=== PATIENT | male | born 1960 | race Caucasian/White ===

== ENCOUNTER 2017-12-29 02:57 | Inpatient (IN) | payer OTHER ==
[2017-12-29] MEDS: HYDROCODONE/APAP (5/325) TAB PO (03:58)
[2017-12-29] MEDS: DEXAMETHASONE 10 MG/ML 1 ML INJ IV (04:59)
[2017-12-29] MEDS: hydrALAzine 20 MG INJ IV (04:59)
[2017-12-29] MEDS: LEVETIRACETAM 1000 MG (PMX) 100 ML IVPB (05:01)
[2017-12-29 05:05] LABS: ADD MAN DIFF? NO
[2017-12-29 05:07] LABS: WHITE BLOOD COUNT 11.8 10^3/ul (4.8-10.8)
[2017-12-29 05:07] LABS: BASOPHIL # 0.1 10^3/ul (0.0-0.1); BASOPHILS % 0.7 % (0.0-2.0); EOSINOPHILS # 0.2 10^3/ul (0.0-0.5); EOSINOPHILS % 1.4 % (0.0-7.0); HEMATOCRIT 41.5 % (42.0-52.0); HEMOGLOBIN 13.7 g/dl (14.0-18.0); LYMPHOCYTES # 1.5 10^3/ul (0.8-2.9); LYMPHOCYTES % 12.4 % (15.0-51.0); MEAN CORPUSCULAR HEMOGLOBIN 29.4 pg (29.0-33.0); MEAN CORPUSCULAR VOLUME 89.1 fl (82.0-101.0); MEAN PLATELET VOLUME 9.9 fl (7.4-10.4); MONOCYTE # 0.9 10^3/ul (0.3-0.9); MONOCYTES % 7.6 % (0.0-11.0); NEUTROPHIL # 9.2 10^3/ul (1.6-7.5); NEUTROPHILS % 77.6 % (39.0-77.0); PLATELET COUNT 448 10^3/UL (140-415); RED BLOOD COUNT 4.66 10^6/ul (4.70-6.10); RED CELL DISTRIBUTION WIDTH 12.6 % (11.5-14.5)
[2017-12-29] MEDS ORDERED: ONDANSETRON 4 MG INJ (05:07)
[2017-12-29] MEDS: ONDANSETRON 4 MG INJ IV (05:08)
[2017-12-29] MEDS: morphine 4 MG/ML VIAL IV (05:22)
[2017-12-29 05:26] LABS: INR 0.97
[2017-12-29 05:27] LABS: PARTIAL THROMBOPLASTIN TIME 25.9 Sec (23.0-35.0)
[2017-12-29] MEDS ORDERED: niCARdipine 25 MG in SOD CHLORIDE 0.9% 240 ML IV (05:30)
[2017-12-29] MEDS: FENTAnyl 50 MCG/ML VIAL IV (05:30)
[2017-12-29] MEDS ORDERED: ACETAMINOPHEN 650 MG SUPP PR (05:30)
[2017-12-29] MEDS ORDERED: niCARdipine 25 MG in SOD CHLORIDE 0.9% 250 ML IV (05:30)
[2017-12-29 05:31] LABS: SALICYLATE 1.1 mg/dl (5.0-30.0)
[2017-12-29 05:32] LABS: ACETAMINOPHEN < 10.0 ug/ml (10.0-30.0)
[2017-12-29 05:32] LABS: ETHANOL < 10.0 mg/dl
[2017-12-29 05:37] LABS: ALANINE AMINOTRANSFERASE 20 IU/L (13-69); ALBUMIN 2.9 g/dl (3.3-4.9); ALBUMIN/GLOBULIN RATIO 1.03; ALKALINE PHOSPHATASE 66 IU/L (42-121); ANION GAP 11 (8-16); ASPARTATE AMINO TRANSFERASE 18 IU/L (15-46); BILIRUBIN,INDIRECT 0.2 mg/dl (0-1.1); BILIRUBIN,TOTAL 0.2 mg/dl (0.2-1.3); BLOOD UREA NITROGEN 11 mg/dl (7-20); CALCIUM 9.3 mg/dl (8.4-10.2); CARBON DIOXIDE 27 mmol/L (21-31); CHLORIDE 105 mmol/L (97-110); CREATININE 0.66 mg/dl (0.61-1.24); GLUCOSE 115 mg/dl (70-220); POTASSIUM 4.2 mmol/L (3.5-5.1); SODIUM 139 mmol/L (135-144); TOTAL PROTEIN 5.7 g/dl (6.1-8.1)
[2017-12-29] MEDS: niCARdipine 25 MG in SOD CHLORIDE 0.9% 240 ML IV (05:41)
[2017-12-29 05:49] LABS: B-TYPE NATRIURETIC PEPTIDE 86 PG/ML (0-125); TROPONIN-I < 0.012 ng/ml (0.000-0.120)
[2017-12-29] MEDS: PANTOPRAZOLE 40 MG INJ IV (06:18)
[2017-12-29 07:53] LABS: MAGNESIUM 1.9 mg/dl (1.7-2.5)
[2017-12-29 07:53] LABS: CHOL/HDL RATIO 3.3 RATIO; CHOLESTEROL 155 mg/dl (100-200); HDL CHOLESTEROL 46 mg/dl (28-71); LDL CHOLESTEROL,CALCULATED 88 mg/dl; TRIGLYCERIDES 104 mg/dl (0-149)
[2017-12-29 08:19] LABS: HEMOGLOBIN A1C 5.1 % (0-5.9)
[2017-12-29] MEDS ORDERED: MIDAZOLAM 1 MG/ML 2 ML INJ IV (08:30)
[2017-12-29] MEDS: THIAMINE 200 MG INJ IM (10:41)
[2017-12-29 14:36] LABS: CREATINE KINASE 84 IU/L (23-200)
[2017-12-29 14:46] LABS: AMPHETAMINE/METHAMPHETAMINE Negative (NEGATIVE); BARBITURATES Negative (NEGATIVE); CANNABINOIDS Negative (NEGATIVE); COCAINE Negative (NEGATIVE)
[2017-12-29 14:50] LABS: CK INDEX 3.3; CK-MB 2.73 ng/ml (0.0-2.4); TROPONIN-I < 0.012 ng/ml (0.000-0.120)
[2017-12-29 14:51] LABS: BENZODIAZEPINES Positive (NEGATIVE); OPIATES Positive (NEGATIVE)
[2017-12-29] MEDS: LEVETIRACETAM 500 MG TAB PO ×2 (17:01→21:07)
[2017-12-29 17:21] LABS: CREATINE KINASE 109 IU/L (23-200)
[2017-12-29 17:34] LABS: CK INDEX 4.1; CK-MB 4.48 ng/ml (0.0-2.4); TROPONIN-I < 0.012 ng/ml (0.000-0.120)
[2017-12-30] MEDS: PANTOPRAZOLE 40 MG INJ IV (05:22)
[2017-12-30] MEDS: LEVETIRACETAM 500 MG TAB PO ×2 (09:10→20:40)
[2017-12-30 09:24] LABS: ADD MAN DIFF? NO
[2017-12-30 09:27] LABS: BASOPHIL # 0.1 10^3/ul (0.0-0.1); BASOPHILS % 0.3 % (0.0-2.0); EOSINOPHILS # 0.1 10^3/ul (0.0-0.5); EOSINOPHILS % 0.5 % (0.0-7.0); HEMATOCRIT 40.1 % (42.0-52.0); HEMOGLOBIN 13.1 g/dl (14.0-18.0); LYMPHOCYTES % 12.9 % (15.0-51.0); MEAN CORPUSCULAR HEMOGLOBIN 29.6 pg (29.0-33.0); MEAN CORPUSCULAR HGB CONC 32.7 g/dl (32.0-37.0); MEAN CORPUSCULAR VOLUME 90.7 fl (82.0-101.0); MEAN PLATELET VOLUME 9.2 fl (7.4-10.4); MONOCYTE # 1.3 10^3/ul (0.3-0.9); MONOCYTES % 8.3 % (0.0-11.0); NEUTROPHIL # 12.2 10^3/ul (1.6-7.5); NEUTROPHILS % 77.6 % (39.0-77.0); PLATELET COUNT 358 10^3/UL (140-415); RED BLOOD COUNT 4.42 10^6/ul (4.70-6.10); RED CELL DISTRIBUTION WIDTH 12.8 % (11.5-14.5)
[2017-12-30 09:27] LABS: WHITE BLOOD COUNT 15.8 10^3/ul (4.8-10.8)
[2017-12-30 09:46] LABS: ALANINE AMINOTRANSFERASE 18 IU/L (13-69); ALBUMIN 2.8 g/dl (3.3-4.9); ALBUMIN/GLOBULIN RATIO 0.93; ALKALINE PHOSPHATASE 60 IU/L (42-121); ANION GAP 9 (8-16); ASPARTATE AMINO TRANSFERASE 25 IU/L (15-46); BILIRUBIN,INDIRECT 0.1 mg/dl (0-1.1); BILIRUBIN,TOTAL 0.1 mg/dl (0.2-1.3); BLOOD UREA NITROGEN 16 mg/dl (7-20); CALCIUM 9.1 mg/dl (8.4-10.2); CARBON DIOXIDE 29 mmol/L (21-31); CHLORIDE 105 mmol/L (97-110); CREATININE 0.82 mg/dl (0.61-1.24); GLUCOSE 96 mg/dl (70-220); PHOSPHORUS 3.4 mg/dl (2.5-4.9); SODIUM 139 mmol/L (135-144); TOTAL PROTEIN 5.8 g/dl (6.1-8.1)
[2017-12-30] MEDS: THIAMINE 200 MG INJ IM (10:35)
[2017-12-31 04:48] LABS: ADD MAN DIFF? NO
[2017-12-31 04:49] LABS: WHITE BLOOD COUNT 12.3 10^3/ul (4.8-10.8)
[2017-12-31 04:49] LABS: BASOPHIL # 0.1 10^3/ul (0.0-0.1); BASOPHILS % 0.8 % (0.0-2.0); EOSINOPHILS # 0.4 10^3/ul (0.0-0.5); EOSINOPHILS % 3.3 % (0.0-7.0); HEMATOCRIT 39.8 % (42.0-52.0); HEMOGLOBIN 12.9 g/dl (14.0-18.0); LYMPHOCYTES # 2.7 10^3/ul (0.8-2.9); LYMPHOCYTES % 22.2 % (15.0-51.0); MEAN CORPUSCULAR HEMOGLOBIN 29.3 pg (29.0-33.0); MEAN CORPUSCULAR HGB CONC 32.4 g/dl (32.0-37.0); MEAN CORPUSCULAR VOLUME 90.5 fl (82.0-101.0); MONOCYTE # 1.1 10^3/ul (0.3-0.9); MONOCYTES % 8.6 % (0.0-11.0); NEUTROPHILS % 64.8 % (39.0-77.0); PLATELET COUNT 327 10^3/UL (140-415); RED CELL DISTRIBUTION WIDTH 12.7 % (11.5-14.5)
[2017-12-31 05:11] LABS: ALANINE AMINOTRANSFERASE 21 IU/L (13-69); ALBUMIN 2.9 g/dl (3.3-4.9); ALBUMIN/GLOBULIN RATIO 1.07; ALKALINE PHOSPHATASE 51 IU/L (42-121); ANION GAP 6 (8-16); ASPARTATE AMINO TRANSFERASE 24 IU/L (15-46); BILIRUBIN,INDIRECT 0.1 mg/dl (0-1.1); BILIRUBIN,TOTAL 0.1 mg/dl (0.2-1.3); BLOOD UREA NITROGEN 18 mg/dl (7-20); CALCIUM 8.9 mg/dl (8.4-10.2); CARBON DIOXIDE 32 mmol/L (21-31); CHLORIDE 107 mmol/L (97-110); CREATININE 0.95 mg/dl (0.61-1.24); GLUCOSE 98 mg/dl (70-220); MAGNESIUM 1.9 mg/dl (1.7-2.5); POTASSIUM 4.9 mmol/L (3.5-5.1); SODIUM 140 mmol/L (135-144); TOTAL PROTEIN 5.6 g/dl (6.1-8.1)
[2017-12-31] MEDS: PANTOPRAZOLE 40 MG INJ IV (05:35)
[2017-12-31] MEDS: LEVETIRACETAM 500 MG TAB PO ×2 (08:42→21:35)
[2017-12-31] MEDS: morphine 2 MG INJ IV ×3 (09:06→19:46)
[2017-12-31] MEDS: THIAMINE 200 MG INJ IM (12:54)
[2017-12-31] MEDS: ONDANSETRON 4 MG INJ IV (15:40)
[2018-01-01] MEDS: morphine 2 MG INJ IV ×5 (01:18→20:28)
[2018-01-01] MEDS: PANTOPRAZOLE 40 MG INJ IV (05:22)
[2018-01-01] MEDS: LEVETIRACETAM 500 MG TAB PO ×2 (09:53→21:39)
[2018-01-01] MEDS: THIAMINE 200 MG INJ IM (11:50)
[2018-01-01] MEDS: DOCUSATE SODIUM 100 MG CAP PO (21:39)
[2018-01-02] MEDS: morphine 2 MG INJ IV ×5 (03:42→22:35)
[2018-01-02 04:52] LABS: ADD MAN DIFF? NO
[2018-01-02 04:59] LABS: BASOPHIL # 0.1 10^3/ul (0.0-0.1); BASOPHILS % 0.6 % (0.0-2.0); EOSINOPHILS # 0.4 10^3/ul (0.0-0.5); EOSINOPHILS % 3.6 % (0.0-7.0); HEMATOCRIT 41.2 % (42.0-52.0); HEMOGLOBIN 13.1 g/dl (14.0-18.0); LYMPHOCYTES # 1.9 10^3/ul (0.8-2.9); LYMPHOCYTES % 15.4 % (15.0-51.0); MEAN CORPUSCULAR HEMOGLOBIN 28.7 pg (29.0-33.0); MEAN CORPUSCULAR HGB CONC 31.8 g/dl (32.0-37.0); MEAN CORPUSCULAR VOLUME 90.2 fl (82.0-101.0); MEAN PLATELET VOLUME 9.1 fl (7.4-10.4); MONOCYTE # 0.9 10^3/ul (0.3-0.9); MONOCYTES % 7.6 % (0.0-11.0); NEUTROPHIL # 8.9 10^3/ul (1.6-7.5); NEUTROPHILS % 72.5 % (39.0-77.0); PLATELET COUNT 360 10^3/UL (140-415); RED BLOOD COUNT 4.57 10^6/ul (4.70-6.10); RED CELL DISTRIBUTION WIDTH 12.4 % (11.5-14.5)
[2018-01-02 04:59] LABS: WHITE BLOOD COUNT 12.3 10^3/ul (4.8-10.8)
[2018-01-02 05:12] LABS: ANION GAP 11 (8-16)
[2018-01-02] MEDS: PANTOPRAZOLE 40 MG INJ IV (05:12)
[2018-01-02 05:13] LABS: PHOSPHORUS 4.8 mg/dl (2.5-4.9)
[2018-01-02 05:13] LABS: MAGNESIUM 1.9 mg/dl (1.7-2.5)
[2018-01-02 05:24] LABS: CARBON DIOXIDE 31 mmol/L (21-31); CHLORIDE 101 mmol/L (97-110); POTASSIUM 4.5 mmol/L (3.5-5.1); SODIUM 138 mmol/L (135-144)
[2018-01-02 05:25] LABS: BLOOD UREA NITROGEN 18 mg/dl (7-20); CALCIUM 9.2 mg/dl (8.4-10.2); CREATININE 0.86 mg/dl (0.61-1.24); GLUCOSE 92 mg/dl (70-220)
[2018-01-02] MEDS: LEVETIRACETAM 500 MG TAB PO ×2 (08:56→20:46)
[2018-01-02] MEDS: DOCUSATE SODIUM 100 MG CAP PO ×2 (08:56→20:46)
[2018-01-02] MEDS ORDERED: NA PHOSPHATE/BIPHOS 133 ML ENEMA PR (09:00)
[2018-01-02] MEDS: THIAMINE 200 MG INJ IM (11:25)
[2018-01-03] MEDS: morphine 2 MG INJ IV ×4 (02:31→18:09)
[2018-01-03 05:05] LABS: ADD MAN DIFF? NO
[2018-01-03 05:08] LABS: BASOPHIL # 0.1 10^3/ul (0.0-0.1); BASOPHILS % 0.5 % (0.0-2.0); EOSINOPHILS # 0.4 10^3/ul (0.0-0.5); EOSINOPHILS % 3.8 % (0.0-7.0); HEMATOCRIT 41.7 % (42.0-52.0); HEMOGLOBIN 13.4 g/dl (14.0-18.0); LYMPHOCYTES # 1.7 10^3/ul (0.8-2.9); MEAN CORPUSCULAR HGB CONC 32.1 g/dl (32.0-37.0); MEAN CORPUSCULAR VOLUME 90.3 fl (82.0-101.0); MEAN PLATELET VOLUME 9.1 fl (7.4-10.4); MONOCYTES % 8.5 % (0.0-11.0); NEUTROPHIL # 8.2 10^3/ul (1.6-7.5); NEUTROPHILS % 71.8 % (39.0-77.0); PLATELET COUNT 377 10^3/UL (140-415); RED BLOOD COUNT 4.62 10^6/ul (4.70-6.10); RED CELL DISTRIBUTION WIDTH 12.5 % (11.5-14.5)
[2018-01-03 05:08] LABS: WHITE BLOOD COUNT 11.4 10^3/ul (4.8-10.8)
[2018-01-03] MEDS: PANTOPRAZOLE (EC) 40 MG TAB PO (05:11)
[2018-01-03 05:30] LABS: ALANINE AMINOTRANSFERASE 19 IU/L (13-69); ALBUMIN 2.8 g/dl (3.3-4.9); ALKALINE PHOSPHATASE 62 IU/L (42-121); ANION GAP 9 (8-16); ASPARTATE AMINO TRANSFERASE 19 IU/L (15-46); BILIRUBIN,INDIRECT 0.1 mg/dl (0-1.1); BILIRUBIN,TOTAL 0.1 mg/dl (0.2-1.3); BLOOD UREA NITROGEN 16 mg/dl (7-20); CALCIUM 9.3 mg/dl (8.4-10.2); CARBON DIOXIDE 32 mmol/L (21-31); CHLORIDE 102 mmol/L (97-110); CREATININE 0.89 mg/dl (0.61-1.24); GLUCOSE 88 mg/dl (70-220); MAGNESIUM 2.1 mg/dl (1.7-2.5); PHOSPHORUS 3.9 mg/dl (2.5-4.9); POTASSIUM 4.1 mmol/L (3.5-5.1); SODIUM 139 mmol/L (135-144); TOTAL PROTEIN 5.9 g/dl (6.1-8.1)
[2018-01-03] MEDS: LEVETIRACETAM 500 MG TAB PO ×2 (08:23→20:13)
[2018-01-03] MEDS: DOCUSATE SODIUM 100 MG CAP PO ×2 (08:24→20:13)
[2018-01-03] MEDS: POLYETHYLENE GLYCOL 17 GM PACKET GTB ×2 (12:00→20:08)
[2018-01-03] MEDS: NA PHOSPHATE/BIPHOS 133 ML ENEMA PR (13:30)
[2018-01-03] MEDS: HYDROCODONE/APAP (5/325) TAB PO (18:09)
[2018-01-04] MEDS: morphine 2 MG INJ IV ×5 (01:24→20:20)
[2018-01-04 05:23] LABS: ADD MAN DIFF? NO
[2018-01-04 05:27] LABS: BASOPHIL # 0.1 10^3/ul (0.0-0.1); BASOPHILS % 0.8 % (0.0-2.0); EOSINOPHILS # 0.5 10^3/ul (0.0-0.5); EOSINOPHILS % 4.5 % (0.0-7.0); HEMATOCRIT 41.3 % (42.0-52.0); HEMOGLOBIN 13.5 g/dl (14.0-18.0); MEAN CORPUSCULAR HEMOGLOBIN 29.3 pg (29.0-33.0); MEAN CORPUSCULAR HGB CONC 32.7 g/dl (32.0-37.0); MEAN CORPUSCULAR VOLUME 89.8 fl (82.0-101.0); MEAN PLATELET VOLUME 9.2 fl (7.4-10.4); MONOCYTE # 0.9 10^3/ul (0.3-0.9); MONOCYTES % 8.7 % (0.0-11.0); NEUTROPHIL # 7.1 10^3/ul (1.6-7.5); NEUTROPHILS % 66.6 % (39.0-77.0); PLATELET COUNT 375 10^3/UL (140-415); RED CELL DISTRIBUTION WIDTH 12.5 % (11.5-14.5)
[2018-01-04 05:27] LABS: WHITE BLOOD COUNT 10.6 10^3/ul (4.8-10.8)
[2018-01-04] MEDS: PANTOPRAZOLE (EC) 40 MG TAB PO (05:49)
[2018-01-04 05:51] LABS: MAGNESIUM 1.9 mg/dl (1.7-2.5)
[2018-01-04 05:51] LABS: PHOSPHORUS 4.4 mg/dl (2.5-4.9)
[2018-01-04 05:57] LABS: ANION GAP 9 (8-16); BLOOD UREA NITROGEN 16 mg/dl (7-20); CALCIUM 9.2 mg/dl (8.4-10.2); CARBON DIOXIDE 30 mmol/L (21-31); CHLORIDE 103 mmol/L (97-110); CREATININE 0.82 mg/dl (0.61-1.24); GLUCOSE 98 mg/dl (70-220); POTASSIUM 4.2 mmol/L (3.5-5.1); SODIUM 138 mmol/L (135-144)
[2018-01-04] MEDS: LEVETIRACETAM 500 MG TAB PO ×2 (09:00→20:19)
[2018-01-04] MEDS: POLYETHYLENE GLYCOL 17 GM PACKET GTB ×2 (09:00→20:21)
[2018-01-04] MEDS: DOCUSATE SODIUM 100 MG CAP PO ×2 (09:00→20:21)
[2018-01-05] MEDS: PANTOPRAZOLE (EC) 40 MG TAB PO (05:14)
[2018-01-05] MEDS: morphine 2 MG INJ IV (06:55)
[2018-01-05] MEDS: LEVETIRACETAM 500 MG TAB PO (08:51)
[2018-01-05] MEDS: POLYETHYLENE GLYCOL 17 GM PACKET GTB (08:59)
[2018-01-05] MEDS: DOCUSATE SODIUM 100 MG CAP PO (08:59)
== END 2018-01-05 12:00 | disposition home or self-care (01) | DRG 25 ==
LOC: 6WM 01-04 12:06 → FTE 02:57 → ICU 05:56
PROC: 009430Z Drainage of Intracranial Subdural Space with Drainage Device, Percutaneous Approach (ICD-10-PCS; principal; 2017-12-29)
DX: S06.5X9A Traumatic subdural hemorrhage with loss of consciousness of unspecified duration, initial encounter (principal); G93.5 Compression of brain; G91.1 Obstructive hydrocephalus; G93.40 Encephalopathy, unspecified; I10 Essential (primary) hypertension; F10.20 Alcohol dependence, uncomplicated; Y90.0 Blood alcohol level of less than 20 mg/100 ml; Y04.0XXA Assault by unarmed brawl or fight, initial encounter; Y93.89 Activity, other specified; Y92.89 Other specified places as the place of occurrence of the external cause; Y99.8 Other external cause status; Z78.1 Physical restraint status
CPT/HCPCS: 36415; 70450; 70551; 71045; 80048; 80053; 80061; 80307; 82550; 82553; 83036; 83735; 83880; 84100; 84443; 84484; 85025; 85610; 85730; 86850; 86900; 86901; 87081; 92610; 93005; 93306; 96365; 96375; 99291-25

== ENCOUNTER 2018-02-05 09:47 | Emergency (ER) | payer OTHER | END 2018-02-05 11:42 | disposition home or self-care (01) | LOC: FTE 09:47 | DX: Z87.820 Personal history of traumatic brain injury (principal); R51 Headache | CPT/HCPCS: 70450; 99284-25 ==